=== PATIENT | male | born 1950 | race Caucasian/White ===

== ENCOUNTER → 2021-04-07 | Outpatient (CLI) | payer MEDICARE, BC ==
[~2021-04-07] VITALS: Ht 170.2 cm; Wt 83.9 kg
[~2021-04-07] MED LIST: AMLODIPINE-BEN1 EAC5 PO; BYSTOLIC10 MG PO; FLOMAX0.4 MG PO; PROSCAR5 MG PO; VITAMIN D250000 UNIT PO
== END ==
LOC: EROP 10:59
DX: U07.1 COVID-19 (principal); Z23 Encounter for immunization
CPT/HCPCS: 96365